=== PATIENT | female | born 1970 | race Caucasian/White ===

== ENCOUNTER → 2018-06-10 | Outpatient (CLI) | payer OTHER | END | disposition home or self-care (01) | LOC: MAMMO 07:45 | DX: Z12.31 Encounter for screening mammogram for malignant neoplasm of breast (principal) | CPT/HCPCS: 77067 ==

== ENCOUNTER → 2021-07-04 | Outpatient (CLI) | payer OTHER ==
[~2021-07-04] MED LIST: HYDROmorphone 2 MG/ML VIAL ONE; KETOROLAC 30 MG/ML VIAL. ONE; LIDOCAINE 2% PF 5 ML VIAL. ONE; ONDANSETRON PF 4 MG/2 ML VIAL. ONE; PROPOFOL 10 MG/ML (20ML) VIAL. IV ONE; SEVOFLURANE 61 TO 120 MINUTES. IH ONE
--- NOTE | 2021-07-04 17:39 | RAD ---
EXAM: BILATERAL DIGITAL 3D SCREENING MAMMOGRAPHY. HISTORY: Routine mammographic screening. TECHNIQUE: Bilateral digital 3D and tomographic images were obtained in CC and MLO projections. Compu ter-aided detection was applied. COMPARISON: 06/10/2018. COMPOSITION: B. There are scattered areas of fibroglandular density. FINDINGS: There are no suspicious masses, microcalcifications or architectural distortion. The parenc hymal pattern is stable. Scattered and coarse calcifications are benign. BI-RADS CATEGORY 2: Benign. RECOMMENDATION: 1. Routine screening mammography in one year. If mammography demonstrates dense breast tissue (heterogenously dense or extremely dense, category C or D), which could hide abnormalities, and if other risk factors for breast cancer have been identifi ed, supplemental screening tests that may be suggested by the ordering physician may be of benefit. D ense breast tissue, in and of itself, is a relatively common condition. Therefore, this information i s not provided to cause undue concern, but rather to raise awareness and to promote discussion with t he referring physician regarding the presence of other risk factors, in addition to dense breast tiss ue. The results of this mammography examination is provided to the patient and referring physician. T he patient should contact their referring physician if any questions or concerns exist regarding this report. PQRS compliance statement - Patient information was entered into a reminder system with a target due date for the next mammogram. "Our facility is accredited by the [employer] Mammography [employer]." Electronically signed by: Gladys Kim MD (07/04/2021 5:37 PM) [id number]
== END ==
LOC: MAMMO 10:59
PROVIDERS: ATTEND Nurse Practitioner
DX: Z12.31 Encounter for screening mammogram for malignant neoplasm of breast (principal)
CPT/HCPCS: 77063; 77067; J1170; J1885; J2405; J2704